=== PATIENT | female | born 1990 | race Caucasian/White ===

== ENCOUNTER 2019-06-04 17:44 | Emergency (ER) | payer MEDICAID ==
[~2019-06-04] VITALS: Ht 160 cm; Wt 75.7 kg
[2019-06-04 17:53] VITALS: BP 102/67; Ht 160 cm; Wt 75.7 kg
== END 2019-06-04 20:12 | disposition home or self-care (01) ==
LOC: ED 17:44
DX: O99.512 Diseases of the respiratory system complicating pregnancy, second trimester (principal); J11.1 Influenza due to unidentified influenza virus with other respiratory manifestations; E78.00 Pure hypercholesterolemia, unspecified; Z88.0 Allergy status to penicillin; Z3A.20 20 weeks gestation of pregnancy
CPT/HCPCS: 87804